=== PATIENT | male | born 1945 | race Native Hawaiian/Other Pacific Islander ===

== ENCOUNTER 2020-01-18 16:38 | Emergency (ER) | payer OTHER ==
[~2020-01-18] VITALS: Ht 188 cm; Wt 93.0 kg
[2020-01-18 19:15] VITALS: BP 117/69; TEMP 98
== END 2020-01-18 19:15 | disposition home or self-care (01) ==
LOC: ED 16:48
DX: S20.211A Contusion of right front wall of thorax, initial encounter (principal); S30.0XXA Contusion of lower back and pelvis, initial encounter; S22.41XA Multiple fractures of ribs, right side, initial encounter for closed fracture; R42 Dizziness and giddiness; W11.XXXA Fall on and from ladder, initial encounter; Y92.098 Other place in other non-institutional residence as the place of occurrence of the external cause
CPT/HCPCS: 96372; 99284; J1885

== ENCOUNTER 2021-02-10 07:43 | Outpatient (CLI) | payer OTHER | END 2021-02-10 21:44 | disposition home or self-care (01) | LOC: RAD 07:43 | PROVIDERS: ATTEND Internal Medicine | DX: M79.642 Pain in left hand (principal); M79.641 Pain in right hand ==